=== PATIENT | male | born 1955 | race Caucasian/White ===

== ENCOUNTER → 2019-04-27 11:29 | Outpatient (CLI) | payer OTHER, SELFPAY ==
[2019-04-27 11:47] VITALS: BP 150/80; PULSE 72; RESP 16; TEMP 36.5; O2SAT 72
--- NOTE | 2019-04-27 12:23 | WMO.HTC_ITS ---
Problem List (1) Hemophilia B in male Status: Chronic Subjective Date of Service:: 04/27/19 Chief Complaint: F/U for Hemophilia B. 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 Has not used factor replace ment in the last year. Feels well. 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 (Acute) sutures in right hand (Acute) Family History (Last Reviewed 04/27/19 @ 11:46 by Judith Oakley) Mother Congestive heart failure Father Skin cancer Allergies/Adverse Reactions: Allergy/AdvReac Type Severity Reaction Status Date / Time aspirin AdvReac Severe BLEEDING Verified 04/27/19 11:46 Risk Factors Social History Smoking Status Former smoker Tobacco Risk Data: Tobacco Risk Smoking Status Former smoker Type of tobacco: Smokeless tobacco usage: Former Items/Day: Year started: Years used: Counseled to quit/cut down: Reason for no counseling performed: Reason for no pharmacotherapy: Tobacco use comments: Passive smoke exposure: No Substance Risk Drug use: No Caffeine use [drinks/day]: Alcohol use: No Type of alcohol: Drinks per day: Has patient felt the need to cut down: Has the patient been annoyed by complaints: Has the patient felt guilty about drinking: 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: Comments: Review of Systems Constitutional:: Denies: Fever, Sweats, Weight loss, Appetite change, Chills Cardiovascular:: Denies: Chest pain, Palpitations, Dyspnea on exertion, Orthopnea, PND, Shortness of breath Respiratory: Denies: Cough, Hemoptysis, Shortness of Breath, Wheezing Gastrointestinal:: Denies: Abdominal pain, Nausea, Vomiting, Diarrhea, Constipation, Hematochezia Genitourinary: Denies: Dysuria, Hematuria, 15, Flank pain Musculoskeletal:: Denies: Back pain, Myalgia, Arthralgia Skin: Denies: Rash, Skin Changes, Wounds Neurological:: Denies: Headache, Dizziness, Visual changes, Tinnitus, Hearing loss Psychiatric: Denies: Anxiety, Depression, Homicidal Ideations, Suicidal Ideations Vital Signs Height 5 ft 8 in Weight: 89.721 kg Weight in Pounds 197.8 lbs Pulse Ox 72 Temperature 97.7 F Pulse Rate 72 Respiratory Rate 16 Blood Pressure 150/80 Blood Pressure Position Sitting - Physical Exam General: Alert, Oriented x3, No apparent distress HEENT: Atraumatic, PERRLA, EOMI, Normocephalic Oropharynx:: Dry mucosa Neck:: Supple, Trachea midline. Negative for: JVD, bilateral Cardiac:: Regular rate, Regular rhythm, Normal S1, Normal S2. Negative for: Murmur Lungs: Clear to auscultation, Excusion symmetrical. Negative for: Rhonchi, Wheezes Abdomen:: Bowel sounds x 4, Soft, Non-tender, Non-distended. Negative for: Hepatosplenomegaly Extremities:: Negative for: Cyanosis, Edema Neurological: Neuro grossly intact Skin:: Negative for: Lesions, Rash, Petechiae, Ecchymosis Psychiatric:: Appropriate affect, Euthymic Lymphatics:: Negative for: Cervical lymphadenopathy, Supraclavicular lymphadenopathy, Axillary lymphadenopathy Therapy ROM Screening - Subjective Subjective:: Pt states he is felling good- no concerns at this time- - Objective Right shoulder flex:: 160 Left shoulder flex:: 160 Right shoulder extension:: 60 Left shoulder extension:: 60 Right elbox flex/ext:: 140/0 Left elbox flex/ext:: 140/0 Right elbow circumference:: 29cm Left elbow circumference:: 28cm Right forearm sup/pron:: WFL Left forearm sup/pron:: WFL Right knee flexion:: 120 Left knee flexion:: 120 Right knee circumference:: 29cm Left knee circumference:: 30cm Right ankle dorsiflexion:: 20 Left ankle dorsiflexion:: 20 Right ankle Plan-flex:: 45 Left ankle Plan-flex:: 45 Right ankle circumference:: Not tested due to boots on Left ankle circumference:: Not tested due to boots on Right hip flexion:: 90 Left hip flexion:: 90 Right hip extension:: 20 Left hip extension:: 20 - Assessment Assessment:: Pt demo all ROM WNL- no concerns at this time. Assessment and Plan Hemophilia B, clinically stable. Plan is to continue expectant management with factor replacement as needed. RTC 1 yr. Primary Care Provider: Boyd Gonzalez DO Referring Provider: Oracio Sanford MD
== END ==
PROVIDERS: Family Provider Family Medicine; PCP Family Medicine; Visit Provider Internal Medicine Medical Oncology
DX: D67 Hereditary factor IX deficiency (principal)